=== PATIENT | male | born 1985 | race Caucasian/White ===

== ENCOUNTER 2020-07-26 17:32 | Emergency (ER) | payer OTHER, SELFPAY ==
[2020-07-26 17:57] VITALS: BP 137/99; PULSE 108; RESP 16; TEMP 36.1; O2SAT 100
--- NOTE | 2020-07-26 18:42 | ED.NAVMDI ---
HPI - Nausea/Vomiting/Diarrhea General Chief complaint: Nausea/Vomiting/Diarrhea Stated complaint: abd pain Time Seen by Provider: 07/26/20 18:30 Source: patient Mode of arrival: ambulatory Limitations: no limitations History of Present Illness HPI Narrative: Mathew Jimenez is a 34 yo male with no PMH who [facility] and diarrhea x3 days-patient looks ill, his mucous membranes are dry and his vital signs are really elevated. Denies any use of alcohol or drugs, states initially he thought he had eaten some bad food but the symptoms have continued. He is able to keep down fluids but not food Related Data Allergies Allergy/AdvReac Type Severity Reaction Status Date / Time Penicillins Allergy Unknown Verified 02/07/15 18:23 Review of Systems Review of Systems: Narrative: CONSTITUTIONAL: Denies fever, chills, sweats. EYES: Denies visual changes, redness, discharge. ENT: Denies rhinorrhea, congestion, sore throat, otalgia. CARDIOVASCULAR: Denies chest pain, palpitations, edema. RESPIRATORY: Denies dyspnea, wheezing, cough GASTROINTESTINAL: Denies abdominal pain, has nausea, vomiting, has diarrhea. GENITOURINARY: Denies dysuria, hematuria, abnormal discharge SKIN: Denies rash or itching. NEUROLOGIC: Denies numbness, or focal weakness. PSYCHIATRIC: Denies anxiety or depression. PMFSH Past Medical History Medical History (Updated 07/26/20 @ 18:51 by Emeli Ram CNP) No acute medical problems Family History Family History Father Diabetes mellitus Social History Social History (Updated 07/26/20 @ 18:48 by mEeli Ram CNP) Smoking status: Never smoker Alcohol intake: never Comments At time of signature, I agree with nursing past medical, surgical, social and family history. There is no relevant family history pertinent to the presenting complaint. Blood pressure elevated at this visit without history of hypertension, recommended the patient follow-up with primary care physician in the next week Exam Narrative: Exam Narrative: GENERAL: This is a well-nourished, well-developed patient, in moderate distress. Patient looks ill HEAD: normocephalic, atraumatic. EYES: Sclera clear/white. Vision is grossly intact. EARS: External ears normal, Hearing grossly intact. NOSE: External nose normal without nasal discharge, nares without redness, no rhinorrhea. THROAT: Mucous membranes moist, posterior pharynx erythema, very dry mucous membranes NECK: Neck supple, non-tender CARDIOVASCULAR: Tachycardic rate and rhythm without murmurs, gallops, or rubs. RESPIRATORY: Clear to auscultation. Breath sounds equal bilaterally. No wheezes, rales, or rhonchi. GASTROINTESTINAL: Abdomen soft, non-tender, SKIN: warm, intact with no suspicious lesions or rash, good texture and turgor. NEURO: awake, alert, and oriented to person, place and time. There were no obvious focal neurologic abnormalities. Steady gait EXTREMITIES: Normal range of motion. BACK: Nontender without deformity Course Course Emergency Course: Patient came to [facility] for treatment of 3 days of diarrhea and nausea patient looks ill Covid test negative Started on Bentyl Imodium and Zofran; started on brat diet Follow-up with PCP Vital Signs Vital signs: Vital Signs Temperature 97.0 F L 07/26/20 17:57 Pulse Rate 108 H 07/26/20 17:57 Respiratory Rate 16 07/26/20 17:57 Blood Pressure 137/99 H 07/26/20 17:57 Pulse Oximetry 100 07/26/20 17:57 Temperature 97.0 F L 07/26/20 17:57 Pulse Rate 108 H 07/26/20 17:57 Respiratory Rate 16 07/26/20 17:57 Blood Pressure 137/99 H 07/26/20 17:57 Pulse Oximetry 100 07/26/20 17:57 MDM - Nausea/Vomiting/Diarrhea Differential Diagnosis Differential diagnosis: Likely traveler's diarrhea, drug-induced nausea and vomiting and other (Gastroenteritis) Lab Data Labs: Lab Results 07/26/20 Range/Units 18:14 PO
== END 2020-07-26 18:59 | disposition home or self-care (01) ==
PROVIDERS: Emergency Provider Nurse Practitioner
DX: K52.9 Noninfective gastroenteritis and colitis, unspecified (principal); Z20.822 Contact with and (suspected) exposure to COVID-19
CPT/HCPCS: 87426; 99213; C9803; G0463